=== PATIENT | female | born 1950 ===

== ENCOUNTER 2020-03-01 20:37 | Outpatient (REF) | payer MEDICARE, MEDICAID, SELFPAY | END 2020-03-01 20:57 | LOC: LBN 20:37 | PROVIDERS: Visit Provider Podiatrist | DX: L02.612 Cutaneous abscess of left foot (principal) | CPT/HCPCS: 87070; 87205 ==

== ENCOUNTER 2020-05-03 15:49 | Inpatient (IN) | payer MEDICARE, MEDICAID, SELFPAY ==
[2020-05-03 16:10] LABS: Abs Immature Grans 0.06 10^3/uL (0.0-0.06); Absolute Basophil Count 0.02 10^3/uL (0.0-0.2); Absolute Lymphocyte Count 2.68 10^3/uL (1.2-3.4); Absolute Monocyte Count 0.79 10^3/uL (0.1-0.8); Absolute Neutrophil Count 6.45 10^3/uL (1.2-6.7); Basophils % 0.2; HCT 40.2 % (36.0-46.0); HGB 13.1 g/dL (11.2-15.7); Immature Grans % 0.6; Lymphocytes % 26.3; MCH 28.4 pg (27.0-33.0); MCHC 32.6 % (32.0-36.0); MCV 87.2 fL (80-95); MPV 10.5 fL (8.0-11.0); Monocytes % 7.7; Neutrophils % 63.2; Nucleated RBC 0 %; Platelet Count 231 10^3/uL (130-400); RBC 4.61 10^6/uL (3.93-5.22); RDW 13.2 % (11.7-14.6); RDW-SD 41.5 fL
[2020-05-03] MEDS: cefTRIAXone 2 GM/50 ML BAG IVPB (16:10)
[2020-05-03 16:11] VITALS: BP 155/64; PULSE 64; RESP 16; TEMP 36.6; O2SAT 98
[2020-05-03 16:23] LABS: ALT 15 U/L (14-59); AST 17 U/L (15-37); Albumin 2.7 g/dL (3.4-5.0); Alkaline Phosphatase 148 U/L (46-116); Anion Gap 8.2 mmol/L (3-11); BUN 21 mg/dL (7-18); Bilirubin, Total 0.4 mg/dL (0.2-1.0); C-Reactive Protein 6.91 mg/dL (0.0-0.3); CO2 28.8 mmol/L (21.0-32.0); CREATININE 1.53 mg/dL (0.55-1.02); Calcium 9.4 mg/dL (8.5-10.1); Chloride 100 mmol/L (98-107); Estimated GFR 33.65 (mL/min/1.73m2); Glucose 251 mg/dL (74-106); Potassium 3.4 mmol/L (3.5-5.1); Sodium 137 mmol/L (136-145); Total Protein 7.1 g/dL (6.4-8.2)
--- NOTE | 2020-05-03 16:23 | W.ED.GENAD ---
Discharge Plan Disposition Patient Disposition: [facility] INPATIENT Condition: Serious Discharge Details Clinical Impression: Puncture wound of right foot excluding toes with infection, Cellulitis of right lower leg Admit Date/Time: 05/03/20 16:34 Admit Provider: Mauro Fisher Attending Provider: Mauro Fisher Primary Care Provider: Keysha Fernando ED Provider: Jean-Paul Edwards Discharge Data Discharge Date/Time-TO BE ENTERED AT DEPARTURE: 05/03/20 17:08 Medical Decision Making 69-year-old female on chronic low-dose prednisone and with history of diabetes and diabetic neuropathy, sent by Dr. King with concern for deep space infection of the right lower extremity and associated cellulitis. Dr. Wilburn recommended starting ceftriaxone 2 g and continuing Levaquin 750 mg. He plans to debride foot tomorrow. Patient was initially given ceftriaxone 2 g. Patient was unsure of antibiotics and after obtaining medical records it was determined that she has allergy listed to cefepime -specific reaction of encephalopathy. Patient had received some of the ceftriaxone infusion. Infusion was discontinued. Patient will be given Levaquin 750 mg IV as she has not yet taken prescribed Levaquin. Patient did have x-ray in Dr. King's office today -no need to repeat at this time. Patient does have erythema of her right lower extremity which I suspect is secondary to cellulitis. She has no calf tenderness. I called and spoke with Dr. Fisher, hospitalist , who will admit the patient. Patient does note that tetanus is up-to-date and was up-to-date at time of puncture wound. HPI General Mode of arrival: ambulatory. Date/Time Provider Initiated Documentation: 05/03/20 15:54. Limitations to Documentation: no limitations. Information obtained by: patient. HPI Narrative: 69-year-old female with history of diabetes, on chronic low-dose prednisone, here with infection of her right lower extremity at the prompting of Dr. King who saw the patient today in clinic. Patient stepped on a metal tack and sustained puncture wound to her right foot 3 to 4 weeks ago. She developed abscess and cellulitis of the right foot and was admitted to outside hospital, [facility], and treated with IV Levaquin and Zosyn. Wound culture grew Klebsiella pneumonia sensitive to Levaquin but resistant to ampicillin. Patient was placed on Levaquin orally at discharge to complete 7-day course. Patient notes that symptoms did improve but then have now worsened. She notes over the past 1 day she developed worsening redness of her lower leg. She denies associated fever. Dr. King is sending to the emergency department for admission for IV antibiotics and plan for debridement tomorrow. Related Data Home Medications Medication Instructions Recorded Confirmed aspirin [Aspirin Low Dose] 81 mg PO DAILY 05/03/20 05/03/20 celecoxib 100 mg PO DAILY PRN 05/03/20 05/03/20 duloxetine [Cymbalta] 120 mg PO DAILY 05/03/20 05/03/20 famotidine 20 mg PO DAILY 05/03/20 05/03/20 fluticasone propionate 1 spray INTRANASAL DAILY PRN 05/03/20 05/03/20 glipizide 5 mg PO BID 05/03/20 05/03/20 lisinopril 40 mg PO DAILY 05/03/20 05/04/20 metoprolol tartrate 50 mg PO BID 05/03/20 05/04/20 ondansetron HCl [Zofran] 4 mg PO .Q8HRS PRN 05/03/20 05/03/20 potassium chloride 20 meq PO DAILY 05/03/20 05/03/20 albuterol sulfate 2 puff INHALATION Q4H PRN PRN 05/04/20 05/04/20 clotrimazole 0 applic TOPICAL BID 05/04/20 05/04/20 lidocaine 1 patch TOPICAL Q24H 05/04/20 05/04/20 prednisone 10 mg PO DAILY 05/04/20 05/04/20 simvastatin 40 mg PO HS 05/04/20 05/04/20 solifenacin 10 mg PO DAILY 05/04/20 05/04/20 torsemide 20 mg PO QAM 05/04/20 05/04/20 trospium 20 mg PO BID 05/04/20 05/04/20 valacyclovir 500 mg PO DAILY 05/04/20 05/04/20 Allergies Allergy/AdvReac Type Severity Reaction Status Date / Time cefepime Allergy Severe Unverified 05/03/20 16:26 General Stated Complaint: Cellulitis NUZHAT: 3 Review of Systems All systems reviewed & are unremarkable except as noted in HPI and below Constitutional Constitutional: Denies fever(s) Integumentary/Breasts Skin/Breast: Reports as per [facility] Medical History Diabetes Diabetic neuropathy Venous stasis of both lower extremities Social History Smoking/Tobacco Use Status: Former Tobacco Use Exam Const General: cooperative and no acute distress HENMT Mouth: moist mucous membranes Eyes Conjunctivae: normal conjunctivae Sclera: normal sclerae Neck Neck: trachea midline and supple Resp Auscultation: clear to auscultation bilaterally, no rales, no rhonchi and no wheezes Cardio Jugular venous pressure: no JVD Rate: regular rate and not tachycardic Rhythm: regular rhythm GI Palpation: soft, not firm, no guarding, no masses, not rigid and nontender Skin Rashes: rashes noted (Erythema right lower extremity extending to just distal to knee) Wounds: wounds noted (Puncture wound base of right foot) Neuro General: patient alert, patient awake and tone normal Extrem General: no calf tenderness and edema (Trace bilateral right greater than left) Right lower extremity: lower leg Details: erythema and warmth; no crepitus Psych Appearance: grossly normal Mental Status: mental status grossly normal Course Vital Signs Vital signs: Vital Signs Temperature 36.6 C 05/03/20 16:11 Pulse 64 05/03/20 16:11 Respiratory Rate 16 05/03/20 16:11 Blood Pressure 155/64 H 05/03/20 16:11 Pulse Oximetry 98 05/03/20 16:11 Temperature 36.6 C 05/03/20 16:11 Temperature Source Skin 05/03/20 16:11 Pulse 64 05/03/20 16:11 Respiratory Rate 16 05/03/20 16:11 Respiratory Effort Non-Labored 05/03/20 16:11 Blood Pressure 155/64 H 05/03/20 16:11 Blood Pressure Position Supine 05/03/20 16:11 Pulse Oximetry 98 05/03/20 16:11 Oxygen Delivery Method Room Air 05/03/20 16:11 Oxygen Flow Rate 0 05/03/20 16:11 Pain Level 0 05/03/20 16:11 Lab/Test Results Lab/Test Results: Laboratory Tests Range/Units 05/03/20 16:05 WBC (4.4-10.8) 10^3/uL 10.20 RBC (3.93-5.22) 10^6/uL 4.61 Hgb (11.2-15.7) g/dL 13.1 Hct (36.0-46.0) % 40.2 MCV (80-95) fL 87.2 MCH (27.0-33.0) pg 28.4 MCHC (32.0-36.0) % 32.6 RDW (11.7-14.6) % 13.2 Plt Count (130-400) 10^3/uL 231 MPV (8.0-11.0) fL 10.5 Immature Gran % 0.6 Neutrophils % 63.2 Lymphocytes % 26.3 Monocytes % 7.7 Eosinophils % 2.0 Basophils % 0.2 Nucleated RBC % % 0 Absolute Neutrophils (1.2-6.7) 10^3/uL 6.45 Absolute Lymphocytes (1.2-3.4) 10^3/uL 2.68 Absolute Monocytes (0.1-0.8) 10^3/uL 0.79 Absolute Eosinophils (0.0-0.7) 10^3/uL 0.20 Absolute Basophils (0.0-0.2) 10^3/uL 0.02
[2020-05-03] MEDS: levoFLOXacin 750 MG/150 ML BAG 100 MG IVPB (16:30)
[2020-05-03 16:47] LABS: ESR 104 mm/hr (0-30)
--- NOTE | 2020-05-03 16:53 | W.PM.HP.N ---
Date of service: 05/03/20 Time of Service: 16:53 Assessment and Plan Assessment and plan (1) Puncture wound of right foot excluding toes with infection: Status: Acute Assessment and plan: Dr King planning debridement tomorrow. Given Levquin in the ED. No elevated WBC count or fever. (2) Cellulitis of right lower leg: Status: Acute Assessment and plan: Erythema from the foot and ascending to just below the knee. IV Levaquin. (3) Diabetic neuropathy: Status: Acute Assessment and plan: Diminished sensation in feet. No pain at R foot puncture site. Qualifiers: Diabetes mellitus type: type 2 Diabetes mellitus complication detail: diabetic polyneuropathy Qualified Code(s): E11.42 - Type 2 diabetes mellitus with diabetic polyneuropathy (4) Diabetes: Status: Chronic Assessment and plan: On Glipizide at home. Elevated glucose currently. Will be NPO after MN. FSBS Q6H. SS insulin correction dosing; adjust as necessary. A1c ordered. Qualifiers: Diabetes mellitus type: type 2 Diabetes mellitus termite treater helper insulin use: without assisted use Diabetes mellitus complication status: with neurologic complications (5) Essential hypertension: Status: Acute Assessment and plan: Will cont Metoprolol and Lisinopril History of Present Illness History of Present Illness Chief Complaint: cellulitis of R foot/leg Narrative: This is a 69 yo female with a PMH of diabetes with neuropathy, GERD, HTN. She presented to the ED from Dr. King's office who saw her for a R foot infection following a punture injury with a tack. She stepped on a metal tack 3-4 weeks ago. She developed an abscess and cellulitis of the R plantar foot and admitted at [facility]. She was treated with IV Levaquin and Zosyn. Wound culture grew Klebsiella pneumonia sensitive to levaquin, resistant to ampicillin. She was placed on oral levaquin at discharge but the redness in the R leg worsened and has been progressing proximally. No F/C. No pain. She saw Dr King who sent her to the ED for admission and debridement of the wound tomorrow, 05/04/2020. IV Levaquin administered. Ceftriaxone was also recommended by Dr King but she has an allergy to Cefepime with the reacion listed as severe. The patient states that happened during a previous hospitalization but she doesn't recall the type of reaction. Her WBC count is normal. Creatinine 1.53. Random glucose 251. CRP 6.91 Review of Systems All systems reviewed & are unremarkable except as noted in HPI and below PFSH Medical History Diabetes Diabetic neuropathy Venous stasis of both lower extremities Social History Smoking/Tobacco Use Status: Former Tobacco Use Meds Home Medications and Allergies Home Medications Medication Instructions Recorded Confirmed Type Unknown [No Known Home Meds] 05/03/20 05/03/20 History aspirin [Aspirin Low Dose] 81 mg PO DAILY 05/03/20 05/03/20 History celecoxib 100 mg PO DAILY PRN 05/03/20 05/03/20 History duloxetine [Cymbalta] 120 mg PO DAILY 05/03/20 05/03/20 History famotidine 20 mg PO DAILY 05/03/20 05/03/20 History fluticasone propionate 1 spray INTRANASAL DAILY PRN 05/03/20 05/03/20 History glipizide 5 mg PO BID 05/03/20 05/03/20 History lisinopril 20 mg PO DAILY 05/03/20 05/03/20 History metoprolol tartrate 50 mg PO DAILY 05/03/20 05/03/20 History ondansetron HCl [Zofran] 4 mg PO .Q8HRS PRN 05/03/20 05/03/20 History potassium chloride 20 meq PO DAILY 05/03/20 05/03/20 History Allergies Allergy/AdvReac Type Severity Reaction Status Date / Time cefepime Allergy Severe Unverified 05/03/20 16:26 Exam Const General: cooperative and no acute distress Nutritional Appearance: overweight Orientation: alert and oriented x3 Neck Neck: full ROM and no JVD Resp Effort & Inspection: normal respiratory effort Auscultation: clear to auscultation bilaterally Cardio Rate: regular rate Rhythm: regular rhythm Heart Sounds: S1 normal and S2 normal GI Palpation: soft and nontender Auscultation: normal bowel sounds Skin General skin exam: erythema (R foot ankle and LE to below the knee.) Lesions: lesion noted (plantar aspect of R foot; puncture lesion) Extrem General: edema Laterality: bilateral (LE trace) Psych Appearance: grossly normal Affect: normal affect Attitude: cooperative Thought Process: normal Thought Content: normal Results Labs Result diagrams: 05/03/20 16:05 05/03/20 16:05 Labs: Laboratory Results - last 24 hr 05/03/20 05/03/20 16:05 16:05 WBC 10.20 RBC 4.61 Hgb 13.1 Hct 40.2 MCV 87.2 MCH 28.4 MCHC 32.6 RDW 13.2 Plt Count 231 MPV 10.5 Immature Gran % 0.6 Neutrophils % 63.2 Lymphocytes % 26.3 Monocytes % 7.7 Eosinophils % 2.0 Basophils % 0.2 Nucleated RBC % 0 Absolute Neutrophils 6.45 Absolute Lymphocytes 2.68 Absolute Monocytes 0.79 Absolute Eosinophils 0.20 Absolute Basophils 0.02 ESR 104 H Sodium 137 Potassium 3.4 L Chloride 100 Carbon Dioxide 28.8 Anion Gap 8.2 BUN 21 H Creatinine 1.53 H Estimated GFR/1.73 m2 33.65 Glucose 251 H Calcium 9.4 Total Bilirubin 0.4 AST 17 ALT 15 Alkaline Phosphatase 148 H C-Reactive Protein 6.91 H Total Protein 7.1 Albumin 2.7 L Last Vital Signs Temp 36.6 C 05/03/20 16:11 Pulse 64 05/03/20 16:11 Resp 16 05/03/20 16:11 BP 155/64 H 05/03/20 16:11 Pulse Ox 98 05/03/20 16:11 COVID-19 Screening Have you,or household,traveled outside [place] in last 14 days?: No Had IN PERSON contact w/suspected or confirmed C-19 person: No
[2020-05-03 17:20] VITALS: BP 177/95; PULSE 69; RESP 17; TEMP 36.2; O2SAT 99
[2020-05-03 17:24] VITALS: BP 177/95; PULSE 69; RESP 17; TEMP 36.2; O2SAT 99
[2020-05-03 17:38] LABS: Hemoglobin A1C 8.7 % (<5.7)
[2020-05-03] MEDS: Insulin Aspart 300 UNITS/3 ML PEN SC (17:44)
[2020-05-03] MEDS: Normal Saline 1,000 ML 80 ML IV (17:59)
[2020-05-03] MEDS: Potassium Chloride 20 MEQ TABCR PO (17:59)
[2020-05-03 18:16] VITALS: BP 140/77
[2020-05-03 19:10] VITALS: BP 152/85; PULSE 68; RESP 18; TEMP 35.9; O2SAT 98
[2020-05-03] MEDS: Acetaminophen 325 MG TAB 650 MG PO (21:21)
[2020-05-03] MEDS: Polyethylene Glycol 3350 17 GM PACKET PO (23:21)
[2020-05-04] VITALS (8 sets, daily range): BP systolic 156–187; BP diastolic 76–109; PULSE 63–91; RESP 16–18; TEMP 36.1–37; O2SAT 95–98
--- NOTE | 2020-05-04 | DI.MRI_ITS ---
EXAM: MR LOWER EXTREMITY RT WO/W CLINICAL HISTORY: osteomyelitis right midfoot. TECHNIQUE: Multiplanar multisequence MRI Examination was performed. CONTRAST MATERIAL: IV Contrast: 18 mL of Dotarem contrast administered. COMPARISON: None. FINDINGS: The examination is limited due to patient motion artifact. BONES/JOINTS: No evidence of fracture. No findings to suggest acute osteomyelitis. Degenerative sign al changes are seen at the 2nd through 5th tarsometatarsal joints. No joint effusion identified. LIGAMENTS: Unremarkable as visualized. MUSCULOTENDINOUS STRUCTURES: Visualized portion of the planar fascia is unremarkable. The visualized intrinsic muscles and tendons of the foot are unremarkable. SOFT TISSUES: There is edema seen in the soft tissues on the plantar surface of the foot around the b ase of the 1st metatarsal. No definite focal fluid collection is seen to suggest an abscess. OTHER FINDINGS: No enhancing mass is appreciated. IMPRESSION: 1. No evidence of acute osteomyelitis. 2. Cellulitis in the soft tissues on the plantar surface of the foot. No abscess is appreciated. 3. Degenerative changes seen in the foot particularly at the 2nd through 5th tarsometatarsal joints. 4. Findings were discussed with Dr. King on the date of the examination. DATA REPOSITORY:
--- NOTE | 2020-05-04 | DI.RAD_ITS ---
EXAM: XR ORBITS INDICATION: OSTEOMYELITIS RT MID FOOT, H/O METAL TO EYES, PRE MRI CLEARANCE. COMPARISON: No exams were available for comparison TECHNIQUE: 2D digital imaging was performed. FINDINGS: No radiopaque foreign bodies are identified. IMPRESSION: DATA REPOSITORY: RADIATION DOSE DELIVERED:
[2020-05-04] MEDS: Normal Saline 1,000 ML 80 ML IV ×2 (05:43→23:41)
[2020-05-04 06:43] LABS: Abs Immature Grans 0.07 10^3/uL (0.0-0.06); Absolute Monocyte Count 0.71 10^3/uL (0.1-0.8); HGB 11.6 g/dL (11.2-15.7); MCH 29.1 pg (27.0-33.0); MCHC 33.1 % (32.0-36.0); MCV 87.9 fL (80-95); MPV 10.1 fL (8.0-11.0); Nucleated RBC 0 %; Platelet Count 166 10^3/uL (130-400); RBC 3.98 10^6/uL (3.93-5.22); RDW 13.2 % (11.7-14.6); RDW-SD 42.5 fL; WBC 7.93 10^3/uL (4.4-10.8)
[2020-05-04 06:52] LABS: Anion Gap 7.8 mmol/L (3-11); BUN 17 mg/dL (7-18); CO2 27.2 mmol/L (21.0-32.0); CREATININE 1.03 mg/dL (0.55-1.02); Calcium 9.2 mg/dL (8.5-10.1); Chloride 105 mmol/L (98-107); Estimated GFR 53.13 (mL/min/1.73m2); Glucose 178 mg/dL (74-106); Potassium 3.5 mmol/L (3.5-5.1); Sodium 140 mmol/L (136-145)
[2020-05-04 07:23] LABS: Absolute Lymphocyte Count 1.74 10^3/uL (1.2-3.4); Atypical Lymphocytes % 3; Diff Comment Manual Differential; Metamyelocytes % 1; RBC Morphology Normal
[2020-05-04] MEDS: Gadoterate meglumine 20 ML VIAL 18 ML IVP (08:17)
[2020-05-04 08:29] LABS: COVID-19 RT-PCR UVMMC Result Negative (Negative)
--- NOTE | 2020-05-04 08:41 | POCOE_ITS ---
Date of service: 05/04/20 Time of Service: 08:41 History of Present Illness History of Present Illness Chief Complaint: Puncture wound with abscess right midfoot Narrative: Emma is a 69-year-old poorly controlled diabetic with peripheral neuropathy who stepped on a tack in the medial arch region of the right foot which subsequently became infected. She was initially admitted at [facility] April 10 for IV antibiotics and was discharged several days later on oral Levaquin. Cultures during that admission revealed Klebsiella resistant to ampicillin. She presented to my office yesterday with increasing redness now e xtending to just below the knee and feeling frustrated at this ongoing infection. After examining her in the office she was referred to [facility] through the emergency department for admission. [facility] Medical History Diabetes Diabetic neuropathy Venous stasis of both lower extremities Social History Smoking/Tobacco Use Status: Former Tobacco Use Exam Narrative Exam Narrative: Peripheral pulses are diminished but palpable at the ankle. Right foot is warm to the touch. Wound is appreciated to plantar medial aspect of the right foot with fluctuance. Localized erythema is appreciated in the foot as well as on the anterior ruiz leading up to the tibial tuberosity region, her calf is soft to palpation no findings of DVT. Muscle groups of 5 out of 5 bilaterally. Skeletal exam reveals marked degenerative changes of the right midfoot and forefoot with loss of the longitudinal and transverse arches. Radiographs that were obtained to my office yesterday revealed Charcot-like change of the right midfoot without definitive findings of osteomyelitis Neurologically she has moderate diabetic peripheral neuropathy but toes are downgoing. Impressions puncture wound right foot with ongoing infection Osteomyelitis? Plan: Culture was obtained yesterday showing white blood cells and gram-positive cocci. Actual organism ID and sensitivities to follow Emma is receiving her MRI as I dictate this note. She will be brought to the O R for debridement of the right foot this morning. And it understands that it may require multiple debridements to fully eradicate the infectious process and that there is a potential for loss of tissue. Discussed the case with Dr. Leon. We will increase her current antibiotic coverage from Levaquin to Levaquin and vancomycin. Results Last Vital Signs Temp 36.1 C L 05/04/20 03:50 Pulse 72 05/04/20 03:50 Resp 17 05/04/20 03:50 BP 176/80 H 05/04/20 03:50 Pulse Ox 95 05/04/20 03:50 Labs Result diagrams: 05/04/20 06:28 05/04/20 06:28 Labs: Laboratory Results - last 24 hr 05/03/20 05/03/20 05/03/20 16:05 16:05 16:05 WBC 10.20 RBC 4.61 Hgb 13.1 Hct 40.2 MCV 87.2 MCH 28.4 MCHC 32.6 RDW 13.2 Plt Count 231 MPV 10.5 Immature Gran % 0.6 Neutrophils % 63.2 Lymphocytes % 26.3 Atypical Lymphs % Monocytes % 7.7 Eosinophils % 2.0 Basophils % 0.2 Metamyelocytes % Nucleated RBC % 0 Absolute Neutrophils 6.45 Absolute Lymphocytes 2.68 Absolute Monocytes 0.79 Absolute Eosinophils 0.20 Absolute Basophils 0.02 RBC Morphology ESR 104 H Sodium 137 Potassium 3.4 L Chloride 100 Carbon Dioxide 28.8 Anion Gap 8.2 BUN 21 H Creatinine 1.53 H Estimated GFR/1.73 m2 33.65 Glucose 251 H Hemoglobin A1c 8.7 H Calcium 9.4 Total Bilirubin 0.4 AST 17 ALT 15 Alkaline Phosphatase 148 H C-Reactive Protein 6.91 H Total Protein 7.1 Albumin 2.7 L COVID-19 PCR Nasopharyn COVID-19 PCR Ref Test Perform Site 05/03/20 05/04/20 05/04/20 16:39 06:28 06:28 WBC 7.93 RBC 3.98 Hgb 11.6 Hct 35.0 L MCV 87.9 MCH 29.1 MCHC 33.1 RDW 13.2 Plt Count 166 MPV 10.1 Immature Gran % See Differential Neutrophils % 63.0 Lymphocytes % 19.0 Atypical Lymphs % 3 Monocytes % 9.0 Eosinophils % 5.0 Basophils % 0.0 Metamyelocytes % 1 Nucleated RBC % 0 Absolute Neutrophils 5.00 Absolute Lymphocytes 1.74 Absolute Monocytes 0.71 Absolute Eosinophils 0.40 Absolute Basophils 0.00 RBC Morphology Normal ESR Sodium 140 Potassium 3.5 Chloride 105 Carbon Dioxide 27.2 Anion Gap 7.8 BUN 17 Creatinine 1.03 H D Estimated GFR/1.73 m2 53.13 Glucose 178 H Hemoglobin A1c Calcium 9.2 Total Bilirubin AST ALT Alkaline Phosphatase C-Reactive Protein Total Protein Albumin COVID-19 PCR Negative Nasopharyn COVID-19 PCR Not Applicable Ref Test Perform Site [facility] lab
--- NOTE | 2020-05-04 09:13 | INITIAL_ITS ---
- If Service Date Differs Date of service: 05/04/20 Time of Service: 09:13 Care Management Initial Assess REASON FOR HOSPITALIZATION:: Cellulitis PAST MEDICAL HISTORY/PAST SURGICAL HISTORY:: Medical History. Diabetes. Diabetic neuropathy. Venous stasis of both lower extremities PREVIOUS FUNCTIONAL STATUS/SOCIAL/FAMILY SUPPORTS:: Emma lives in [place], alone. She has four children who are supportive. Two of her sons live in [place], one in [place], and her daughter recently moved back to [place] from [place]. Emma has HH RN and has a residential case manager from [facility] that helps her in the community. She is independent at baseline. CURRENT FUNCTIONAL STATUS:: Emma was sitting up in her chair when CM met with her. She has already been to have an MRI and debridement of her foot this morning. She reported that it went well and she does not have any pain at this time. She asked about the visitation policy, and she identified her son, Nathaniel as her visitor for this admission. She asked to call [facility] to inform them that she is here. CM called and spoke to Monica at [facility] who was pleased to receive the information. Nathaniel brought in her CPAP machine from home, at the request of her RN. brought Emma a word search book to keep her busy while she is here. She was very pleasant. CM will continue to follow. ADVANCE DIRECTIVES:: None on file. Has patient been provided with info about the portal/API?: No Did the patient sign up for the portal?: No CODE STATUS:: Full Code INSURANCE COVERAGE / FINANCIAL ISSUES:: [facility]/ [facility] CURRENT HOME/COMMUNITY SERVICES/EQUIPMENT:: Emma has a FWW at home. She currently has HH RN from [employer] [facility] [employer] [employer]. She has a residential case manager through [facility], Marya Suarez. PRIMARY CARE PHYSICIAN:: Keysha Fernando POTENTIAL DISCHARGE NEEDS:: Evaluations for further needs, follow up suzie ointments. PATIENT/FAMILY EDUCATION NEEDS:: Review discharge instructions regarding activity levels and medications, discussion of self care needs including ask me three. ANTICIPATED BARRIERS TO DISCHARGE:: None identified at this time. TRANSPORTATION:: Via private vehicle by family when ready. PLAN:: Emma will go to the OR today for debridement of her right foot. Anticipate she may need IV abx, awaiting sensitivities currently. Depending on her abx course, she may need to transition to SWB1 vs home with resumption of HH RN, possibly adding PT. CM will continue to follow.
[2020-05-04] MEDS: Lactated Ringers 1,000 ML 100 ML IV (09:35)
[2020-05-04] MEDS: Lidocaine 1% Multi-Dose 50 ML VIAL (09:51)
[2020-05-04] MEDS: Bupivacaine 0.5% Pres-Free 30 ML VIAL (09:51)
--- NOTE | 2020-05-04 10:19 | W.PM.OP ---
Date of service: 05/04/20 Time of Service: 10:20 Operative Note Operative Note DATE OF PROCEDURE: 05/04/20 PRE-OP DIAGNOSIS: Puncture wound with abscess right foot PROCEDURE: Debridement right foot with [place] placement ANESTHESIA: MAC ESTIMATED BLOOD LOSS: 3 PATHOLOGY: none sent COMPLICATIONS: None Patient was transported to: floor Patient's condition: stable Implants: [place] drain Indications: 69-year-old poorly controlled diabetic with a puncture wound approximately 4 weeks in duration with persistent signs of infection to the right foot with extension up the leg. She is being brought to the OR for incision and drainage?debridement type procedure to the right foot. Risk and complications have been discussed. All questions have been answered. Informed consent has been obtained. Findings: MRI was obtained this morning prior to surgery there was no indication of osteomyelitis although she has advanced degenerative arthritis throughout the midfoot. No foreign bodies were noted. Procedure Description: Emma was brought to the operative suite placed in the supine position with a right foot prepped and draped in the usual sterile podiatric fashion. Timeout was performed per. Protocol. anesthesia being accomplished in the monitored anesthesia and the right ankle block utilizing 18 cc of a 50: 50 mixture 1% lidocaine plain, 0.5% Marcaine plain. Attention was directed to the puncture wound at the plantar medial aspect of the right foot. The puncture wound was sharply debrided and an opening easily identified a probe was inserted into this opening which tracked proximal medially exiting dorsal medially over the first metatarsal approximately at its midpoint. The plantar incision was then opened approximately a centimeter with a #15 scalpel. Additional tracking was appreciated distally towards the forefoot region going another 2 cm. No hannah purulence was identified once I got through the initial opening of the wound plantarly. Since I obtained a good culture last night I did not repeat them at this time. Curettes were then inserted from the plantar aspect of the foot and the soft tissue gently curettaged removing any debris. Once again no obvious purulent matter identified nor any significant signs of foreign material. Slight bleeding was encountered as would be expected. A probe was inserted into this wound I followed the sinus tract proximal medially dorsal and came up just above the midportion of the first metatarsal. With a #15 scalpel a stab incision was made and the probe pushed through exiting dorsomedially on the foot. Irrigation was subsequently performed utilizing a 60 cc syringe and a 14-gauge Angiocath. 180 mL's of normal saline was pushed through this mechanism. 1/4 inch Doe drain was then passed through and through and fluff gauze compression dressings applied to the foot. Estimated blood loss was minimal. Emma tolerated the procedure well. Sharp and sponge counts were correct. She will remain in-house for bedrest, IV antibiotics.
[2020-05-04] MEDS: Lisinopril 20 MG TAB 40 MG PO (10:39)
[2020-05-04] MEDS: Metoprolol 50 MG TAB PO ×2 (10:40→19:58)
[2020-05-04] MEDS: DULoxetine 30 MG CAP 120 MG PO (10:40)
[2020-05-04] MEDS: Acetaminophen 325 MG TAB 650 MG PO ×2 (10:50→19:59)
[2020-05-04] MEDS: Insulin Aspart 300 UNITS/3 ML PEN SC ×3 (11:59→21:51)
--- NOTE | 2020-05-04 12:43 | DM INPTCON_ITS ---
Date of service: 05/04/20 Time of Service: 12:00 Diabetes Inpatient Consult DESCRIPTION/ASSESSMENT: 69 y/o female with diabetic neuropathy and abscess/cellulitis R lower limb r/t puncture wound. Currently 188% IBW w/ BMI 38.2 indicating morbid obesity. On CCHO diet reg texture. Observed 1/2 PBJ sandwich on wheat which she stated was her breakfast due to procedure early this am. She reports that she tests her BG in the morning at home and is normally 115-200 depending on what she eats. Labs reveal 251 mg/dl (05/03) and 178 ( 05/04). She was able to identify what CHO's are and knows that she should limit them. She stated she does not know how to count CHO's. Noted: on glipizide at home. On insulin w/ sliding scale as inpatient. Intervention: Reviewed principals of CHO counting and provided take home literature to help. Educated patient on the risks and benefits of CCHO diet compliance. Provided appropriate BG ranges with chart for review. Provided contact info for in depth DM edu referral upon discharge. Recommend: Active lx pro supplement 30 ml BID w/ 30 ml H2O to provide 30g/pro/day to help w/ wound healing. Vit C and Zn per MD approval. Plan: Emma will contact for referral to RD at [facility] for outpatient Diabetes, weight loss nutrition education after discharge to facilitate self -management techniques. Time Spent in Nutritional Counseling and Treatment: 10 minutes
--- NOTE | 2020-05-04 13:58 | PHA.REVIEW ---
Pharmacy Admission Review - Admission Clinical Review (Last Reviewed 05/04/20 @ 08:43 by Jefry King DPM) Essential hypertension (Acute) Puncture wound of right foot excluding toes with infection (Acute) Cellulitis of right lower leg (Acute) Diabetic neuropathy (Acute) cefepime Allergy (Severe, Unverified 05/03/20 16:26) Height 4 ft 11 in Weight 85.899 kg - Renal Dosing Renal Dosing: BUN 17 mg/dL (7-18) 05/04/20 06:28 Creatinine 1.03 mg/dL (0.55-1.02) H D 05/04/20 06:28 Medications needing adjustments: Reviewed (CrCl ~51.6 using adjusted bw) List of meds needing interventions: As long as kidney function doesn't decline lovefloxacin is okay (otherwise may need to change to q48h) - Anticoagulation Anticoagulation: Hgb 11.6 g/dL (11.2-15.7) 05/04/20 06:28 Hct 35.0 % (36.0-46.0) L 05/04/20 06:28 Plt Count 166 10^3/uL (130-400) 05/04/20 06:28 Creatinine 1.03 mg/dL (0.55-1.02) H D 05/04/20 06:28 DVT Prohphylaxis: N/A Therapeutic Anticoagulation: N/A - Relevant Labs ESR 104 mm/hr (0-30) H 05/03/20 16:05 Sodium 140 mmol/L (136-145) 05/04/20 06:28 Potassium 3.5 mmol/L (3.5-5.1) 05/04/20 06:28 Chloride 105 mmol/L (98-107) 05/04/20 06:28 C-Reactive Protein 6.91 mg/dL (0.0-0.3) H 05/03/20 16:05 Electrolytes, C-Reactive P, ESR: Reviewed - DM Control DM Control: Glucose 178 mg/dL (74-106) H 05/04/20 06:28 Hemoglobin A1c 8.7 % (<5.7) H 05/03/20 16:05 Finger Stick Blood Glucose 268 Finger Stick Blood Glucose 268 Insulin Dosing: Reviewed - Heart Failure/AZ EF%, KELI's, B-Blockers, Diuretics: Reviewed (Metoprolol, lisinopril, torsemide @ home) - BP Control BP Control: Blood Pressure 169/76 Blood Pressure 187/109 Blood Pressure 175/109 Blood Pressure 176/80 If elevated: Intervened List meds needing interventions: Metoprolol should be BID per home med list - notified MD - Qtc Review If Elevated: N/A - IV to PO Switch IV Medications: Reviewed - Home Meds Home Med List reviewed: Intervened (Added several home meds missing from initial review upon admission) Relevent Home Meds Not ordered & why?: glipizide - SS insulin ordered, trospium - hasn't filled since 03/13 - Current meds Current Medication Order Review: Intervened (Adjusted SS insulin to meal time coverage from scheduled as she is no longer NPO) - Comments Comments/Follow Ups: Vancomycin plus IV levofloxacin for cellulitis
--- NOTE | 2020-05-04 14:10 | PGE_ITS ---
Date of Service Date of service: 05/04/20 Time of Service: 14:10 Assessment and Plan Assessment and plan (1) Puncture wound of right foot excluding toes with infection: Status: Acute Assessment and plan: Dr King debrided today. continue vanco and Levquin day 2 No elevated WBC count or fever. (2) Cellulitis of right lower leg: Status: Acute Assessment and plan: Erythema from the foot and ascending to just below the knee. IV Levaquin and vancomycin day 2. (3) Diabetic neuropathy: Status: Acute Assessment and plan: Diminished sensation in feet. Qualifiers: Diabetes mellitus complication detail: diabetic polyneuropathy Diabetes mellitus type: type 2 Qualified Code(s): E11.42 - Type 2 diabetes mellitus with diabetic polyneuropathy (4) Diabetes: Status: Chronic Assessment and plan: On Glipizide at home. Elevated glucose currently. FSBS ac/hs. SS insulin correction dosing; adjust as necessary. A1c 8.7. Qualifiers: Diabetes mellitus complication status: with neurologic complications D iabetes mellitus care home insulin use: without care home use Diabetes mellitus type: type 2 (5) Essential hypertension: Status: Acute Assessment and plan: Will cont Metoprolol and Lisinopril discussed with DR Fisher who is in agreement Subjective Subjective Patient reports: no new complaints, feels better and afebrile Exam Const General: cooperative and no acute distress Nutritional Appearance: overweight Orientation: alert and oriented x3 Neck Neck: full ROM and no JVD Resp Effort & Inspection: normal respiratory effort Auscultation: clear to auscultation bilaterally Cardio Rate: regular rate Rhythm: regular rhythm Heart Sounds: S1 normal and S2 normal GI Palpation: soft and nontender Auscultation: normal bowel sounds Skin General skin exam: erythema (R foot ankle and LE to below the knee. light pink and within markings) Lesions: other (surgical dressing clean dry and intact.) Extrem General: edema Laterality: bilateral (LE trace) Psych Appearance: grossly normal Affect: normal affect Attitude: cooperative Thought Process: normal Thought Content: normal Objective Last Vital Signs Temp 36.5 C 05/04/20 11:33 Pulse 63 05/04/20 11:33 Resp 17 05/04/20 11:33 BP 169/76 H 05/04/20 11:33 Pulse Ox 98 05/04/20 11:33 Laboratory Results - last 24 hr 05/03/20 05/03/20 05/03/20 16:05 16:05 16:05 WBC 10.20 RBC 4.61 Hgb 13.1 Hct 40.2 MCV 87.2 MCH 28.4 MCHC 32.6 RDW 13.2 Plt Count 231 MPV 10.5 Immature Gran % 0.6 Neutrophils % 63.2 Lymphocytes % 26.3 Atypical Lymphs % Monocytes % 7.7 Eosinophils % 2.0 Basophils % 0.2 Metamyelocytes % Nucleated RBC % 0 Absolute Neutrophils 6.45 Absolute Lymphocytes 2.68 Absolute Monocytes 0.79 Absolute Eosinophils 0.20 Absolute Basophils 0.02 RBC Morphology ESR 104 H Sodium 137 Potassium 3.4 L Chloride 100 Carbon Dioxide 28.8 Anion Gap 8.2 BUN 21 H Creatinine 1.53 H Estimated GFR/1.73 m2 33.65 Glucose 251 H Hemoglobin A1c 8.7 H Calcium 9.4 Total Bilirubin 0.4 AST 17 ALT 15 Alkaline Phosphatase 148 H C-Reactive Protein 6.91 H Total Protein 7.1 Albumin 2.7 L COVID-19 PCR Nasopharyn COVID-19 PCR Ref Test Perform Site 05/03/20 05/04/20 05/04/20 16:39 06:28 06:28 WBC 7.93 RBC 3.98 Hgb 11.6 Hct 35.0 L MCV 87.9 MCH 29.1 MCHC 33.1 RDW 13.2 Plt Count 166 MPV 10.1 Immature Gran % See Differential Neutrophils % 63.0 Lymphocytes % 19.0 Atypical Lymphs % 3 Monocytes % 9.0 Eosinophils % 5.0 Basophils % 0.0 Metamyelocytes % 1 Nucleated RBC % 0 Absolute Neutrophils 5.00 Absolute Lymphocytes 1.74 Absolute Monocytes 0.71 Absolute Eosinophils 0.40 Absolute Basophils 0.00 RBC Morphology Normal ESR Sodium 140 Potassium 3.5 Chloride 105 Carbon Dioxide 27.2 Anion Gap 7.8 BUN 17 Creatinine 1.03 H D Estimated GFR/1.73 m2 53.13 Glucose 178 H Hemoglobin A1c Calcium 9.2 Total Bilirubin AST ALT Alkaline Phosphatase C-Reactive Protein Total Protein Albumin COVID-19 PCR Negative Nasopharyn COVID-19 PCR Not Applicable Ref Test Perform Site [facility] lab
--- NOTE | 2020-05-04 14:47 | CHAPLAIN ---
Emma was up in her chair working on word puzzles when I visited. She is from [place], but sees Dr. Cohen so she ended up here at [facility]. She said she went from [facility], to an MRI to surgery to debreid her foot this morning and she's learned that she doesn't have a bone infection. Her son may travel from [place] to visit her. Her daughter is caring for her father, so won't be able to visit. Emma said she felt like she was fine by herself, but she is glad her son will be here. Being isolated these days because of COVID-19, she says has cut her off from family, and she considers her family a source of strength and comfort.
[2020-05-04] MEDS: levoFLOXacin 750 MG/150 ML BAG 100 MG IVPB (15:46)
[2020-05-04] MEDS: Polyethylene Glycol 3350 17 GM PACKET PO (15:46)
[2020-05-04] MEDS: Simvastatin 40 MG TAB PO (19:58)
[2020-05-04] MEDS: Docusate Sodium 100 MG CAP PO (19:58)
[2020-05-04] MEDS: VANCOMYCIN 750 MG in Normal Saline 250 ML 166.667 MG IVPB (23:40)
[2020-05-05] VITALS (8 sets, daily range): BP systolic 153–205; BP diastolic 78–122; PULSE 62–71; RESP 16–18; TEMP 36.5–37.1; O2SAT 95–98
[2020-05-05] MEDS: Acetaminophen 325 MG TAB 650 MG PO ×2 (06:33→11:46)
[2020-05-05] MEDS: Metoprolol 50 MG TAB PO ×2 (08:03→19:48)
[2020-05-05] MEDS: Zinc Sulfate 220 MG TAB PO (08:03)
[2020-05-05] MEDS: DULoxetine 30 MG CAP 120 MG PO (08:03)
[2020-05-05] MEDS: valACYclovir 500 MG TAB PO (08:04)
[2020-05-05] MEDS: Potassium Chloride 20 MEQ TABCR PO (08:04)
[2020-05-05] MEDS: Docusate Sodium 100 MG CAP PO ×2 (08:04→19:48)
[2020-05-05] MEDS: predniSONE 10 MG TAB PO (08:04)
[2020-05-05] MEDS: Aspirin E.C. 81 MG TABEC PO (08:04)
[2020-05-05] MEDS: Lisinopril 20 MG TAB 40 MG PO (08:04)
[2020-05-05] MEDS: Ascorbic Acid 500 MG TAB PO (08:04)
[2020-05-05] MEDS: Insulin Aspart 300 UNITS/3 ML PEN SC ×4 (08:04→22:02)
[2020-05-05] MEDS: Torsemide 20 MG TAB PO (08:04)
[2020-05-05] MEDS: amLODIPine 5 MG TAB PO (09:40)
[2020-05-05 10:07] LABS: Abs Immature Grans 0.12 10^3/uL (0.0-0.06); Absolute Basophil Count 0.03 10^3/uL (0.0-0.2); Absolute Eosinophil Count 0.19 10^3/uL (0.0-0.7); Absolute Lymphocyte Count 1.62 10^3/uL (1.2-3.4); Absolute Monocyte Count 0.63 10^3/uL (0.1-0.8); Absolute Neutrophil Count 5.96 10^3/uL (1.2-6.7); Basophils % 0.4; Eosinophils % 2.2; Immature Grans % 1.4; Lymphocytes % 18.9; MCH 28.8 pg (27.0-33.0); MCHC 32.4 % (32.0-36.0); MCV 88.9 fL (80-95); MPV 10.3 fL (8.0-11.0); Monocytes % 7.4; Neutrophils % 69.7; Nucleated RBC 0 %; Platelet Count 166 10^3/uL (130-400); RBC 4.16 10^6/uL (3.93-5.22); RDW 13.3 % (11.7-14.6); RDW-SD 43.5 fL; WBC 8.55 10^3/uL (4.4-10.8)
[2020-05-05 10:19] LABS: Anion Gap 6.8 mmol/L (3-11); BUN 15 mg/dL (7-18); C-Reactive Protein 3.14 mg/dL (0.0-0.3); CO2 28.2 mmol/L (21.0-32.0); CREATININE 0.99 mg/dL (0.55-1.02); Calcium 9.1 mg/dL (8.5-10.1); Chloride 101 mmol/L (98-107); Estimated GFR 55.61 (mL/min/1.73m2); Glucose 299 mg/dL (74-106); Magnesium 1.4 mg/dL (1.8-2.4); Potassium 3.7 mmol/L (3.5-5.1); Sodium 136 mmol/L (136-145)
--- NOTE | 2020-05-05 11:22 | W.PM.PROGNOT ---
Date of Service Date of service: 05/05/20 Time of Service: 11:22 Subjective Subjective Patient reports: no new complaints and feels better Exam Narrative Exam Narrative: Dressings were clean and dry. No bleeding or drainage appreciated. Dressings were removed without difficulty. Peripheral pulses are diminished but palpable at the ankle. Right foot is less warm to the touch than yesterday. Wound is appreciated on the plantar medial aspect of the right foot without fluctuance. Erythema is receding in the foot and absent in the leg at this time. Her calf is soft to palpation without findings of DVT. Doe drain is intact. No purulent drainage observed in or around the wound or Doe. No fluctuance appreciated with deep palpation. She was Muscle groups of 5 out of 5 bilaterally. Skeletal exam reveals marked degenerative changes of the right midfoot and forefoot with loss of the longitudinal and transverse arches. Radiographs that were obtained to my office yesterday revealed Charcot-like change of the right midfoot without definitive findings of osteomyelitis Neurologically she has moderate diabetic peripheral neuropathy but toes are downgoing. Microbiology reveals heavy growth gram-positive cocci. Identification and sensitivities pending. CRP is trending downwards now sitting at 3.14. WBCs normal. Impressions puncture wound right foot with improving signs of infection, cellulitis Plan: The Doe drain and incisional areas were prepped with povidone iodine and the wound was irrigated with a 60 cc syringe and a 14-gauge Angiocath 240 mL's of normal saline. The [place] drain was then removed. The plantar and dorsal wounds were then covered with Xeroform gauze fluff compression dressings. We will continue with vancomycin and Levaquin pending culture report. Will continue to follow. Objective Last Vital Signs Temp 36.7 C 05/05/20 11:16 Pulse 69 05/05/20 11:16 Resp 18 05/05/20 11:16 BP 169/100 H 05/05/20 11:16 Pulse Ox 95 05/05/20 11:16 Laboratory Results - last 24 hr 05/05/20 05/05/20 09:50 09:50 WBC 8.55 RBC 4.16 Hgb 12.0 Hct 37.0 MCV 88.9 MCH 28.8 MCHC 32.4 RDW 13.3 Plt Count 166 MPV 10.3 Immature Gran % 1.4 Neutrophils % 69.7 Lymphocytes % 18.9 Monocytes % 7.4 Eosinophils % 2.2 Basophils % 0.4 Nucleated RBC % 0 Absolute Neutrophils 5.96 Absolute Lymphocytes 1.62 Absolute Monocytes 0.63 Absolute Eosinophils 0.19 Absolute Basophils 0.03 Sodium 136 Potassium 3.7 Chloride 101 Carbon Dioxide 28.2 Anion Gap 6.8 BUN 15 Creatinine 0.99 Estimated GFR/1.73 m2 55.61 Glucose 299 H D Calcium 9.1 Magnesium 1.4 L C-Reactive Protein 3.14 H
[2020-05-05] MEDS: VANCOMYCIN 750 MG in Normal Saline 250 ML 167 MG IVPB (11:46)
[2020-05-05] MEDS: MAGNESIUM SULFATE 4 GM/100 ML BAG IVPB (14:02)
[2020-05-05] MEDS: levoFLOXacin 750 MG/150 ML BAG 100 MG IVPB (16:57)
--- NOTE | 2020-05-05 17:28 | W.PM.PROGNOT ---
Date of Service Date of service: 05/05/20 Time of Service: 17:28 Assessment and Plan Assessment and plan (1) Diabetic foot ulcer: Status: Acute Assessment and plan: And abscess s/p I&D by Dr King 05/04/2020. Awaiting surgical cultures. Continue empiric vanco/levofloxacin. Wound care per podiatry. (2) Puncture wound of right foot excluding toes with infection: Status: Acute Assessment and plan: As above. (3) Cellulitis of right lower leg: Status: Acute Assessment and plan: As above (4) Diabetic neuropathy: Status: Chronic Assessment and plan: Will check B12 level Qualifiers: Diabetes mellitus type: type 2 Diabetes mellitus complication detail: diabetic polyneuropathy Qualified Code(s): E11.42 - Type 2 diabetes mellitus with diabetic polyneuropathy (5) Diabetes: Status: Chronic Assessment and plan: A1c 8.7. BGs today: 185, 324, 311. It does appear that she needs more prandial insulin. Will also start long acting insulin. Qualifiers: Diabetes mellitus type: type 2 Diabetes mellitus senior care insulin use: without ocean transportation intermediary use Diabetes mellitus complication status: with neurologic complications (6) Essential hypertension: Status: Acute Assessment and plan: Add norvasc (SBP this am >200). Continue metoprolol and lisinopril. (7) DVT prophylaxis: Status: Acute Assessment and plan: Heparin SC (8) Discharge planning issues: Status: Acute Assessment and plan: Full code Continues to require hospitalization Subjective Subjective Interval history since last seen: Ms Howell reports feeling better now. Her biggest complaint is her foot bothering her and her lower back pain which has been bothering her since the fall. Denies dizziness, chest pain, shortness of breath, nausea, vomiting. Exam Narrative Exam Narrative: General: Very pleasant middle-aged female who is sitting comfortably in a chair eating dinner HEENT: EOMI, MMM Heart: RRR, no m/r/g Lungs: CTAB Abdomen: soft, nontender, nondistended Extremities: R foot dressed - c/d/i. No edema BLEs Objective Last Vital Signs Temp 37.1 C 05/05/20 15:50 Pulse 69 05/05/20 15:50 Resp 18 05/05/20 15:50 BP 160/99 H 05/05/20 15:50 Pulse Ox 95 05/05/20 15:50 Laboratory Results - last 24 hr 05/05/20 05/05/20 09:50 09:50 WBC 8.55 RBC 4.16 Hgb 12.0 Hct 37.0 MCV 88.9 MCH 28.8 MCHC 32.4 RDW 13.3 Plt Count 166 MPV 10.3 Immature Gran % 1.4 Neutrophils % 69.7 Lymphocytes % 18.9 Monocytes % 7.4 Eosinophils % 2.2 Basophils % 0.4 Nucleated RBC % 0 Absolute Neutrophils 5.96 Absolute Lymphocytes 1.62 Absolute Monocytes 0.63 Absolute Eosinophils 0.19 Absolute Basophils 0.03 Sodium 136 Potassium 3.7 Chloride 101 Carbon Dioxide 28.2 Anion Gap 6.8 BUN 15 Creatinine 0.99 Estimated GFR/1.73 m2 55.61 Glucose 299 H D Calcium 9.1 Magnesium 1.4 L C-Reactive Protein 3.14 H
--- NOTE | 2020-05-05 18:35 | PDOC.CMPRO ---
- If Service Date Differs Date of service: 05/05/20 Time of Service: 18:35 Care Management Progress Note S/O: Emma was sitting up in a chair when CM met with her. She was cooperative and readily engaged in conversation. She stated that she is feeling pretty good. Yesterday Dr. King performed an I&D of her right foot and cultures are pending. She is on empiric antibiotics until culture ID and sensitivities are known. She has also had hypertensive episodes with systolic readings as high as 200. Her provider is adjusting her antihypertensive medications to address this. A: Emma is a 69 year oldwoman admitted on 05/03/20 with cellulitis with abscess of her RLE. P: Emma will likely return home with a resumption of services. She may require longer term IVAB, depending on the organism identified, which may affect the timeline of her discharge. She will follow up with her PCP, Podiatry and discharge plan of care and transport with [facility] coordinated by CM. CM will continue to support patien, family and discharge planning concerns.
[2020-05-05] MEDS: Lidocaine 5% Patch 1 PATCH TP (19:47)
[2020-05-05] MEDS: Simvastatin 40 MG TAB 20 MG PO (19:48)
[2020-05-05] MEDS: Heparin 5,000 UNITS/ML VIAL 5000 UNITS SC (22:01)
[2020-05-05] MEDS: Acetaminophen 500 MG TAB 1000 MG PO (22:02)
[2020-05-05] MEDS: Insulin Glargine 300 UNITS/3 ML PEN SC (22:03)
[2020-05-05] MEDS: VANCOMYCIN 750 MG in Normal Saline 250 ML 166.667 MG IVPB (23:48)
[2020-05-05] MEDS: Normal Saline Flush 10 ML SYR IVP (23:48)
[2020-05-06] MEDS: Acetaminophen 500 MG TAB 1000 MG PO ×3 (06:20→21:13)
[2020-05-06] MEDS: Heparin 5,000 UNITS/ML VIAL 5000 UNITS SC ×3 (06:21→21:14)
[2020-05-06 08:00] LABS: Abs Immature Grans 0.15 10^3/uL (0.0-0.06); Absolute Basophil Count 0.02 10^3/uL (0.0-0.2); Absolute Eosinophil Count 0.14 10^3/uL (0.0-0.7); Absolute Lymphocyte Count 2.71 10^3/uL (1.2-3.4); Absolute Monocyte Count 0.64 10^3/uL (0.1-0.8); Absolute Neutrophil Count 4.49 10^3/uL (1.2-6.7); Basophils % 0.2; Eosinophils % 1.7; HCT 34.6 % (36.0-46.0); HGB 11.3 g/dL (11.2-15.7); Immature Grans % 1.8; Lymphocytes % 33.3; MCH 28.3 pg (27.0-33.0); MCHC 32.7 % (32.0-36.0); MCV 86.7 fL (80-95); MPV 10.4 fL (8.0-11.0); Monocytes % 7.9; Neutrophils % 55.1; Nucleated RBC 0 %; Platelet Count 166 10^3/uL (130-400); RBC 3.99 10^6/uL (3.93-5.22); RDW 13.3 % (11.7-14.6); WBC 8.15 10^3/uL (4.4-10.8)
[2020-05-06 08:05] VITALS: BP 177/82; PULSE 66; RESP 19; TEMP 37.1; O2SAT 96
[2020-05-06] MEDS: Lisinopril 20 MG TAB 40 MG PO (08:11)
[2020-05-06] MEDS: Torsemide 20 MG TAB PO (08:11)
[2020-05-06] MEDS: amLODIPine 5 MG TAB PO (08:12)
[2020-05-06] MEDS: predniSONE 10 MG TAB PO (08:12)
[2020-05-06] MEDS: valACYclovir 500 MG TAB PO (08:12)
[2020-05-06] MEDS: Zinc Sulfate 220 MG TAB PO (08:12)
[2020-05-06] MEDS: Ascorbic Acid 500 MG TAB PO (08:12)
[2020-05-06] MEDS: Potassium Chloride 20 MEQ TABCR PO ×2 (08:12→09:42)
[2020-05-06] MEDS: Metoprolol 50 MG TAB PO ×2 (08:12→19:59)
[2020-05-06] MEDS: DULoxetine 30 MG CAP 120 MG PO (08:12)
[2020-05-06] MEDS: Aspirin E.C. 81 MG TABEC PO (08:12)
[2020-05-06] MEDS: Docusate Sodium 100 MG CAP PO ×2 (08:12→19:59)
[2020-05-06 08:13] LABS: Anion Gap 8.4 mmol/L (3-11); BUN 16 mg/dL (7-18); C-Reactive Protein 3.27 mg/dL (0.0-0.3); CO2 26.6 mmol/L (21.0-32.0); CREATININE 0.98 mg/dL (0.55-1.02); Calcium 9.2 mg/dL (8.5-10.1); Chloride 102 mmol/L (98-107); Estimated GFR 56.27 (mL/min/1.73m2); Glucose 183 mg/dL (74-106); Magnesium 2.1 mg/dL (1.8-2.4); Potassium 3.3 mmol/L (3.5-5.1); Sodium 137 mmol/L (136-145)
[2020-05-06] MEDS: Insulin Aspart 300 UNITS/3 ML PEN SC ×7 (08:13→21:13)
[2020-05-06 08:59] LABS: Vitamin B12 405 pg/mL (193-986)
--- NOTE | 2020-05-06 10:45 | PDOC.CMPRO ---
- If Service Date Differs Date of service: 05/06/20 Time of Service: 10:45 Care Management Progress Note S/O: Emma was sitting up in a chair when CM met with her. She was cooperative and readily engaged in conversation. Emma shared that Dr. King had been in to see her and verbalized that he was pleased with the appearance of her right foot wound. The IV vancomycin is being discontinued and she will be started on Bactrim. She will likely be discharged tomorrow with a 10 day course of Bactrim and follow up with Dr. King. Emma appeared pleased with the plan. A: Emma is a 69 year old woman admitted on 05/03/20 with cellulitis with abscess of her RLE. P: Emma will likely return home with a resumption of services. She will require a 10 day course of oral Bactrim DS and follow up with Dr. King on 05/14/20. She will also follow up with her PCP and discharge plan of care. She will transport with [facility] coordinated by SHOSHANA. CM will continue to support patient, family and discharge planning concerns.
--- NOTE | 2020-05-06 10:45 | W.PM.PROGNOT ---
Date of Service Date of service: 05/06/20 Time of Service: 10:45 Assessment and Plan Assessment and plan (1) Diabetic foot ulcer: Status: Acute Assessment and plan: And abscess s/p I&D by Dr King 05/04/2020. CRP improving, white blood cell count normal. Wound cultures growing MRSA. Levaquin discontinued. Continue Vanco. Wound care per podiatry. (2) Puncture wound of right foot excluding toes with infection: Status: Acute Assessment and plan: As above. (3) Cellulitis of right lower leg: Status: Acute Assessment and plan: As above (4) Diabetic neuropathy: Status: Chronic Assessment and plan: B12 normal, 405. Qualifiers: Diabetes mellitus type: type 2 Diabetes mellitus complication detail: diabetic polyneuropathy Qualified Code(s): E11.42 - Type 2 diabetes mellitus with diabetic polyneuropathy (5) Diabetes: Status: Chronic Assessment and plan: A1c 8.7. Blood glucose improved this morning to 177. Continue long-acting insulin with scheduled mealtime insulin as well as sliding scale coverage. Continue to monitor blood glucose, adjust regimen as needed. Qualifiers: Diabetes mellitus type: type 2 Diabetes mellitus ad terminal makeup operator insulin use: without [facility] use Diabetes mellitus complication status: with neurologic complications (6) Essential hypertension: Status: Acute Assessment and plan: Blood pressure improved today with the addition of amlodipine yesterday. Continue to monitor blood pressure. Titrate amlodipine as indicated. (7) Falls: Status: Acute Assessment and plan: Consult physical therapy. (8) Hypokalemia: Status: Acute Assessment and plan: Replete and monitor. (9) DVT prophylaxis: Status: Acute Assessment and plan: Heparin SC (10) Discharge planning issues: Status: Acute Assessment and plan: Full code. This case was discussed with Dr. Camejo who is in agreement. Subjective Subjective Interval history since last seen: Emma reports that she is feeling better. She denies foot pain, she has peripheral neuropathy. She endorses lower back pain since she fell 2 weeks ago. She has been getting up to the bathroom with a walker and assistance. She is unsteady at times. She is eating and drinking and tolerating her diet, no nausea, vomiting or diarrhea. She moved her bowels yesterday. She denies SOB, coughing, wheezing, CP/pressure palpitations. She reports improvement in her lower extremity edema. She denies any urinary symptoms. Exam Narrative Exam Narrative: General: 69-year-old female, appears stated age, sitting in recliner with lower extremities elevated. Alert and oriented, pleasant and cooperative, answers questions appropriately. Son, Ntahaniel present. HEENT: Normocephalic, atraumatic, pupils equal round, mucous membranes moist. Cardiovascular: Heart has regular rate and rhythm, 2/6 murmur noted at right sternal border. Respiratory: Respirations appear even and unlabored, lung sounds clear bilaterally. GI: + Bowel sounds in 4 quadrants, abdomen is soft, nondistended, nontender on palpation. Extremities: Right foot with dressing clean, dry and intact. Wrinkled skin, trace edema to right lower extremity. Objective Last Vital Signs Temp 37.1 C 05/06/20 08:05 Pulse 66 05/06/20 08:05 Resp 19 05/06/20 08:05 BP 177/82 H 05/06/20 08:05 Pulse Ox 96 05/06/20 08:05 Laboratory Results - last 24 hr 05/06/20 05/06/20 05/06/20 07:24 07:24 07:24 WBC 8.15 RBC 3.99 Hgb 11.3 Hct 34.6 L MCV 86.7 MCH 28.3 MCHC 32.7 RDW 13.3 Plt Count 166 MPV 10.4 Immature Gran % 1.8 Neutrophils % 55.1 Lymphocytes % 33.3 Monocytes % 7.9 Eosinophils % 1.7 Basophils % 0.2 Nucleated RBC % 0 Absolute Neutrophils 4.49 Absolute Lymphocytes 2.71 Absolute Monocytes 0.64 Absolute Eosinophils 0.14 Absolute Basophils 0.02 Sodium 137 Potassium 3.3 L Chloride 102 Carbon Dioxide 26.6 Anion Gap 8.4 BUN 16 Creatinine 0.98 Estimated GFR/1.73 m2 56.27 Glucose 183 H D Calcium 9.2 Magnesium 2.1 C-Reactive Protein 3.27 H Vitamin B12 405
--- NOTE | 2020-05-06 11:02 | PHA.REVIEW ---
Pharmacy Admission Review - Admission Clinical Review (Last Reviewed 05/04/20 @ 08:43 by Jefry King DPM) Diabetic foot ulcer (Acute) Discharge planning issues (Acute) DVT prophylaxis (Acute) Essential hypertension (Acute) Puncture wound of right foot excluding toes with infection (Acute) Cellulitis of right lower leg (Acute) cefepime Allergy (Severe, Unverified 05/03/20 16:26) Height 4 ft 11 in Weight 85.899 kg - Renal Dosing Renal Dosing: BUN 16 mg/dL (7-18) 05/06/20 07:24 Creatinine 0.98 mg/dL (0.55-1.02) 05/06/20 07:24 Medications needing adjustments: Reviewed (crcl ~39ml/min) - Anticoagulation Anticoagulation: Hgb 11.3 g/dL (11.2-15.7) 05/06/20 07:24 Hct 34.6 % (36.0-46.0) L 05/06/20 07:24 Plt Count 166 10^3/uL (130-400) 05/06/20 07:24 Creatinine 0.98 mg/dL (0.55-1.02) 05/06/20 07:24 DVT Prohphylaxis: Reviewed Medications: Heparin Therapeutic Anticoagulation: N/A - Relevant Labs ESR 104 mm/hr (0-30) H 05/03/20 16:05 Sodium 137 mmol/L (136-145) 05/06/20 07:24 Potassium 3.3 mmol/L (3.5-5.1) L 05/06/20 07:24 Chloride 102 mmol/L (98-107) 05/06/20 07:24 Magnesium 2.1 mg/dL (1.8-2.4) 05/06/20 07:24 C-Reactive Protein 3.27 mg/dL (0.0-0.3) H 05/06/20 07:24 Electrolytes, C-Reactive P, ESR: Reviewed (KCL now dose and daily dose increased) - DM Control DM Control: Glucose 183 mg/dL (74-106) H D 05/06/20 07:24 Hemoglobin A1c 8.7 % (<5.7) H 05/03/20 16:05 Finger Stick Blood Glucose 177 Finger Stick Blood Glucose 177 Finger Stick Blood Glucose 177 Insulin Dosing: Reviewed (insulin aspart and glargine) - BP Control BP Control: Blood Pressure 177/82 If elevated: Reviewed - Qtc Review If Elevated: N/A - IV to PO Switch IV Medications: Reviewed (IV abx, other meds PO) - Home Meds Home Med List reviewed: Intervened (glipizide, trospium not ordered simvastatin dose decreased to 20mg due to addition of amlodipine) - Current meds Current Medication Order Review: Reviewed Antibiotic Activity - Pharmacy Antibiotic Review Pharmacy Antibiotic Activity: C/S review (org resistant to cipro sens to vanco. pt continues on vanco and levofloxacin stopped. vanco trough to be evaluated today)
[2020-05-06 11:54] LABS: Vancomycin, Trough 17.1 ug/mL (10.0-20.0)
[2020-05-06] MEDS: VANCOMYCIN 750 MG in Normal Saline 250 ML 167 MG IVPB (12:22)
--- NOTE | 2020-05-06 12:33 | PGE_ITS ---
Date of Service Date of service: 05/06/20 Time of Service: 12:34 Subjective Subjective Patient reports: no new complaints and feels better Exam Narrative Exam Narrative: Dressings were intact, clean and dry. No bleeding or drainage appreciated. Dressings were removed without difficulty. Peripheral pulses are diminished but palpable at the ankle. Right foot is no longer warm to the touch. Wounds on the plantar medial and medial dorsal aspect of the right foot appear to be clean without drainage. Deep palpation within the foot fails to express any discharge. Her calf is soft to palpation without findings of DVT. Muscle groups of 5 out of 5 bilaterally. Skeletal exam reveals marked degenerative changes of the right midfoot and forefoot with loss of the longitudinal and transverse arches. The pressure color is beautiful Neurologically she has moderate diabetic peripheral neuropathy but toes are downgoing. Microbiology reveals heavy growth gram-positive cocci. MRSA POSITIVE Impressions puncture wound right foot with resolving signs of infection, Staph aureus MRSA positive Plan: The levofloxacin has been discontinued by the hospitalist. She remains on vancomycin this morning. We will transition her off of the IV vancomycin to p.o. Bactrim DS in preparation of discharge tomorrow to home. Anticipate a 10- day course of oral antibiotics. Home health will be triggered for local wound care consisting washing the foot with soap and water rinsing with normal saline and patting dry. Iodosorb gel to be applied to both wounds covered with gauze, Kerlix, flex net and Garland wrap daily. She can ambulate as tolerated in a surgical shoe. I would like to see her back in the office a week from Thursday but she knows to contact me after she has been discharged if she has any signs of infection. Objective Last Vital Signs Temp 37.1 C 05/06/20 08:05 Pulse 66 05/06/20 08:05 Resp 19 05/06/20 08:05 BP 177/82 H 05/06/20 08:05 Pulse Ox 96 05/06/20 08:05 Laboratory Results - last 24 hr 05/06/20 05/06/20 05/06/20 07:24 07:24 07:24 WBC 8.15 RBC 3.99 Hgb 11.3 Hct 34.6 L MCV 86.7 MCH 28.3 MCHC 32.7 RDW 13.3 Plt Count 166 MPV 10.4 Immature Gran % 1.8 Neutrophils % 55.1 Lymphocytes % 33.3 Monocytes % 7.9 Eosinophils % 1.7 Basophils % 0.2 Nucleated RBC % 0 Absolute Neutrophils 4.49 Absolute Lymphocytes 2.71 Absolute Monocytes 0.64 Absolute Eosinophils 0.14 Absolute Basophils 0.02 Sodium 137 Potassium 3.3 L Chloride 102 Carbon Dioxide 26.6 Anion Gap 8.4 BUN 16 Creatinine 0.98 Estimated GFR/1.73 m2 56.27 Glucose 183 H D Calcium 9.2 Magnesium 2.1 C-Reactive Protein 3.27 H Vitamin B12 405 Vancomycin Trough 05/06/20 11:30 WBC RBC Hgb Hct MCV MCH MCHC RDW Plt Count MPV Immature Gran % Neutrophils % Lymphocytes % Monocytes % Eosinophils % Basophils % Nucleated RBC % Absolute Neutrophils Absolute Lymphocytes Absolute Monocytes Absolute Eosinophils Absolute Basophils Sodium Potassium Chloride Carbon Dioxide Anion Gap BUN Creatinine Estimated GFR/1.73 m2 Glucose Calcium Magnesium C-Reactive Protein Vitamin B12 Vancomycin Trough 17.1
[2020-05-06 15:05] VITALS: BP 157/87; PULSE 65; RESP 20; TEMP 36.5; O2SAT 95
[2020-05-06 19:00] VITALS: BP 153/82; PULSE 63; RESP 18; TEMP 36.6; O2SAT 96
[2020-05-06] MEDS: Lidocaine 5% Patch 1 PATCH TP (19:59)
[2020-05-06] MEDS: Simvastatin 40 MG TAB 20 MG PO (20:00)
[2020-05-06] MEDS: Insulin Glargine 300 UNITS/3 ML PEN SC (21:13)
[2020-05-06] MEDS: Sulfameth/Trimeth DS TAB 1 TAB PO (21:14)
[2020-05-07 03:37] VITALS: BP 152/84; PULSE 65; RESP 18; TEMP 36.7; O2SAT 95
[2020-05-07] MEDS: Acetaminophen 500 MG TAB 1000 MG PO (06:28)
[2020-05-07] MEDS: Heparin 5,000 UNITS/ML VIAL 5000 UNITS SC (06:28)
[2020-05-07 07:54] VITALS: BP 174/85; PULSE 58; RESP 16; TEMP 36.5; O2SAT 96
[2020-05-07 08:17] LABS: Anion Gap 6.4 mmol/L (3-11); BUN 21 mg/dL (7-18); C-Reactive Protein 2.22 mg/dL (0.0-0.3); CO2 27.6 mmol/L (21.0-32.0); CREATININE 0.97 mg/dL (0.55-1.02); Calcium 9.7 mg/dL (8.5-10.1); Chloride 101 mmol/L (98-107); Estimated GFR 56.94 (mL/min/1.73m2); Glucose 173 mg/dL (74-106); Magnesium 1.8 mg/dL (1.8-2.4); Potassium 3.6 mmol/L (3.5-5.1); Sodium 135 mmol/L (136-145)
--- NOTE | 2020-05-07 08:41 | PDOC.CMDIS ---
LACE Index Scoring Tool - Questions: Length of Stay (in days): 4 - 6 Acuity (Admit via E.D.?): Yes Comorbidities: Diabetes w/o Complication E.D. Visits: 1 - Answers: Total Score: 9 Risk of Readmission: Low Risk Care Management Discharge Reason for Hospitalization: Cellulitis Discharge Plan: Emma will likely return home with a resumption of services. She will require a 10 day course of oral Bactrim DS and follow up with Dr. King on. 05/14/20. She will also follow up with her PCP and discharge plan of care. She will transport with [facility] coordinated by CM. CM will continue to support patient, family and discharge planning concerns. Patient/Family Education Needs: Review discharge instructions, discuss Ask Me Three. Services Needed at Discharge: Home Health Care Services (Resumption of RN, wound care, consideration for PT), Transportation ([facility])
[2020-05-07] MEDS: DULoxetine 30 MG CAP 120 MG PO (08:49)
[2020-05-07] MEDS: Cyanocobalamin 500 MCG TAB 1000 MCG PO (08:49)
[2020-05-07 08:50] VITALS: O2SAT 96
[2020-05-07] MEDS: Docusate Sodium 100 MG CAP PO (08:50)
[2020-05-07] MEDS: valACYclovir 500 MG TAB PO (08:50)
[2020-05-07] MEDS: amLODIPine 5 MG TAB PO (08:52)
[2020-05-07] MEDS: Lisinopril 20 MG TAB 40 MG PO (08:52)
[2020-05-07] MEDS: Ascorbic Acid 500 MG TAB PO (08:52)
[2020-05-07] MEDS: Aspirin E.C. 81 MG TABEC PO (08:53)
[2020-05-07] MEDS: Zinc Sulfate 220 MG TAB PO (08:53)
[2020-05-07] MEDS: Torsemide 20 MG TAB PO (08:53)
[2020-05-07] MEDS: Metoprolol 50 MG TAB PO (08:53)
[2020-05-07] MEDS: predniSONE 10 MG TAB PO (08:53)
[2020-05-07] MEDS: Potassium Chloride 20 MEQ TABCR 40 MEQ PO (08:53)
[2020-05-07] MEDS: Insulin Aspart 300 UNITS/3 ML PEN SC ×4 (08:54→12:13)
--- NOTE | 2020-05-07 08:58 | PT.INIE ---
Date of service: 05/07/20 Time of Service: 08:58 PT Notes Visit Reasons: Cellulitis Physical Therapy Inpatient Initial Evaluation Date: 05/07/2020 Referring Doctor: Eden Roy NP PT Orders: PT CONSULT: falls, peripheral neuropathy, DM foot ulceration Precautions: Fall. Standard. Post-op shoe on R, regular shoe on L. WBAT on R LE. Patient Profile/Admitting Diagnosis: Emma 69-year-old female who presented to the ED on 920 questionable infection and associated cellulitis of the right foot due to accidental stepping on a metal tack. She is diagnosed with puncture wound of the right foot with infection, cellulitis of the right leg and is status post debridement of the right foot with [place] placement on 02/02/2020, and neuropathy. PMHX: Medical History Diabetes Diabetic neuropathy Venous stasis of both lower extremities Social History/Home Situation: Lives alone with her 2 puppies in a private home with 4 steps to enter and rails on both sides. She states that her son is planning on building her around to make getting in and out of the house easier. She is independent with all mobility ADL performance using a 4 wheeled walker for indoors and outdoors. She states that she does not walk too far and that she uses a motorized cart at the grocery store. [facility] takes her to all her doctors appointments. Equipment Owned/DME: Front wheeled walker, 4 wheeled walker Subjective: Agreeable to PT consult. Reports decreased sensation on both lower extremities. Denies dizziness, headache, and lightheadedness. Pain in the right foot with weight bearing. Objective: General Observation: IV access in right UE. Wound dressing on right foot. Erythema to bilateral legs. Mental Status: Alert and oriented x4 Pain: 1/10 in the right foot with weightbearing ROM: Right Upper Extremity: Shoulder Flexion WFL. Shoulder abduction WFL. Elbow flexion WFL. Wrist flexion WFL. Opening and closing of hand WFL. Left Upper Extremity: Shoulder Flexion WFL. Shoulder abduction WFL. Elbow flexion WFL. Wrist flexion WFL. Opening and closing of hand WFL. Right Lower Extremity: Hip flexion WFL. Hip abduction WFL. Knee flexion WFL. Ankle dorsiflexion WFL. Ankle plantarflexion WFL. Left Lower Extremity: Hip flexion WFL. Hip abduction WFL. Knee flexion WFL. Ankle dorsiflexion WFL. Ankle plantarflexion WFL. Strength: Right Upper Extremity: Shoulder flexors 4/5. Shoulder abductors 4/5. Elbow flexors 4/5. Elbow extensors 4/5. Manager Business Operations strong. Left Upper Extremity: Shoulder flexors 4/5. Shoulder abductors 4/5. Elbow flexors 4/5. Elbow extensors 4/5. Manager Business Operations strong. Right Lower Extremity: Hip flexors 4-/5. Hip abductors 4/5. Knee flexors 4-/5. Knee extensors 4-/5. Ankle dorsiflexors NT. Ankle plantarflexors 4/5. Left Lower Extremity:Hip flexors 4/5. Hip abductors 4/5. Knee flexors 4/5. Knee extensors 4/5. Ankle dorsiflexors 5/5. Ankle plantarflexors 5/5. Sensation: Reports numbness and tingling sensation to bilateral legs and feet. Bed Mobility/Transfers: Sit to stand standby assist Stand to sit standby assist Bed to chair standby assist Chair to bed standby assist Gait: Walker with WBAT on the right LE requiring only contact-guard assist with step through gait pattern and complaint of 1/10 pain in the right foot. Decreased jed. Balance: Static Sitting: Normal Dynamic Sitting: Normal fair Static Standing: Dynamic Standing: Fair Special Tests: Mobility Limitations Standardized Measure [facility] AM-PAC 6 clicks Basic Mobility Inpatient Short Form: Raw Score: 18 CMS Score: 47% deficit 4-stage Balance test: Able to maintain feet together and semi-tandem for 10 seconds but was anxious about performing full tandem and one-legged stance indicating moderate to high risk for falls without the use of an assistive device. Informed Consent/Education: Patient instructed in purpose of PT consult and plan of care. Assessment: Emma demonstrates functional mobility decline requiring the use of front wheeled walker and assistance of a caregiver for all mobility ADL performance, generalized weakness, difficulty with walking, impairment with balance, and increased risk for falls due to admitting diagnoses and postoperative status. Emma 69-year-old female who presented to the ED on 920 questionable infection and associated cellulitis of the right foot due to accidental stepping on a metal tack. She is diagnosed with puncture wound of the right foot with infection, cellulitis of the right leg and is status post debridement of the right foot with [place] placement on 02/02/2020, and neuropathy. Patient presents with clinical signs and symptoms consistent with current/admitting diagnoses that have resulted to mobility limitations, gait instability, generalized weakness, and impairment of motor control as demonstrated by the following impairment level findings: 1. Decreased strength to R LE major muscle groups 2. Impaired standing balance 3. Impaired activity tolerance Impairments are contributing to the following functional limitations: 1. Dependent bed mobility skills 2. Increased dependence with transfers 3. Inability to safely ambulate without assistive device and physical assistance 4. Increase completion time for mobility ADL performance 5. Increased fall risk 6. Inability to negotiate steps alone safely Patient is assessed as a [id number] moderate complexity based on the following: History: 69-year-old female with impairment level findings, functional limitations, and past medical history as indicated above Examination: Demonstrable impairment in strength, balance, and mobility level with underlying impairments and functional limitations as documented above Presentation:Evolving Decision Makin moderate complexity Goals: Goals X1 week 1. Supine-Sit independent 2. Sit-Supine independent 3. Sit-Stand independent 4. Stand-Sit independent 5. Bed-Chair independent 6. Chair-Bed independent 7. Independent gait on level surface with use of least restrictive device for at least 300 feet without report of pain nor dyspnea 8. Independent stair negotiation while holding onto bilateral rails for at least 5 steps without report of pain nor dyspnea 9. Independent with home exercise program 10. Good static and dynamic standing balance/tolerance Plan of Care/Treatment Plan: 1-2x/day, 7 days/week x 1 week. Plan of care has been reviewed with the [employer]ANCH MANAGER providing the service under Physical Therapy direction. Initiate Physical Therapy intervention for strengthening, bed mobility, transfers, gait, stairs, balance training, use of assistive device. DISCHARGE RECOMMENDATIONS: Patient will benefit from home health PT services in order to progress mobility level using least restrictive assistive ambulatory device, assess home safety, identify additional equipment needs, and establish a functional maintenance program that will increase ability of patient to remain at home. TREATMENT CODE/TIME: 04177 x 32 minutes beginning at 8:58 AM. Thank you for the opportunity to participate in the care of this patient. Cora Cardoso PT, DPT, CLT [facility] [place], [place]
--- NOTE | 2020-05-07 10:40 | W.PM.DS.N ---
Date of service: 05/07/20 Time of Service: 10:40 DS: Diagnosis Discharge Diagnosis (1) Diabetic foot ulcer: Start date: 05/07/20 Start time: 10:40 Status: Acute Asessment and Plan: From tac. tack in the medial arch region of the right foot which subsequently became infected. She was initially admitted at [facility] April 10 for IV antibiotics and was discharged several days later on oral Levaquin. Cultures during that admission revealed Klebsiella resistant to ampicillin. She had debridement with Dr. King, wound culture grew MRSA sensitive to bactrim, she is being discharged home with 10 days of bactrim BID for infection. Follow up with Dr. King on May.14 (2) Puncture wound of right foot excluding toes with infection: Start date: 05/07/20 Start time: 10:46 Status: Acute Asessment and Plan: as above She will require wound care and therefore will have nursing services (3) Cellulitis of right lower leg: Start date: 05/07/20 Start time: 10:46 Status: Acute Asessment and Plan: as above (4) Diabetic neuropathy: Start date: 05/07/20 Start time: 10:47 Status: Chronic Asessment and Plan: Continue to check feet daily, wear surgical shoe (5) Diabetes: Start date: 05/07/20 Start time: 10:47 Status: Chronic Asessment and Plan: Continue fingersticks and medication per home dosing. (6) Essential hypertension: Start date: 05/07/20 Start time: 10:48 Status: Acute Asessment and Plan: continue home medications, she did require additional medication for hypertension. Amlodipine was initiated, will defer to PCP for further management of BP. (7) Falls: Start date: 05/07/20 Start time: 10:49 Status: Resolved Asessment and Plan: Independent ambulation around room. (8) Hypokalemia: Start date: 05/07/20 Start time: 10:50 Status: Resolved Asessment and Plan: Resolved with po supplementation above case discussed with Dr. Camejo who is in agreement. Discharge Plan Disposition Patient Disposition: HOME W/HOME HEALTH SERVICE Condition: Improving Discharge Details Reason For Visit: CELLULITIS Admit Date/Time: 05/03/20 16:34 Admit Provider: Mauro Fisher Attending Provider: Mauro Fisher Primary Care Provider: Keysha Fernando Hospital Course Hospital Course: 69 y.o female with PMH that was admitted to [facility] through the ED from Dr. Frye office. She had found a tack in her foot which subsequently lead to infection with cellulitis of RLE. Prior to admission she had been discharged from [facility] after receiving IV antibiotics and oral levaquin. Following discharge she was seen by Dr. King and admitted for further management. During hospital stay CRP was 6.9 she was started on vanco and levaquin, the wound was debrided by Dr. King on 05/04. Today CRP is 2.22, wound culture grew MRSA sensitive to bactrim. She is ambulatory around room with surgical boot in place, she feels good and is ready for discharge home with home health services. She will be discharged on Bactrim high dose BID x 10 days. Recommend follow up with PCP in 1-2 weeks. Follow up with Dr. King on May 14. She denies CP, SOB, N/V/D. Wound orders:Home health will be triggered for local wound care consisting washing the foot with soap and water rinsing with normal saline and patting dry. Iodosorb gel to be applied to both wounds covered with gauze, Kerlix, flex net and Garland wrap daily. She can ambulate as tolerated in a surgical shoe. Home Meds and New Rx's Prescriptions: New Iodosorb 0.9 % Gel 10 g topical DIRECTED Qty: 40 RF: 0 amlodipine 5 mg Tablet 5 mg PO DAILY Qty: 30 RF: 0 sulfamethoxazole-trimethoprim 800-160 mg Tablet 2 tab PO BID Qty: 18 RF: 0 Continued lisinopril 20 mg Tablet 40 mg PO DAILY RF: 0 ondansetron HCl [Zofran] 4 mg Tablet 4 mg PO .Q8HRS PRNRF: 0 potassium chloride 10 mEq Tablet Extended Release 20 meq PO DAILY RF: 0 aspirin [Aspirin Low Dose] 81 mg Tablet,Delayed Release (Dr/Ec) 81 mg PO DAILY RF: 0 famotidine 20 mg Tablet 20 mg PO DAILY RF: 0 metoprolol tartrate 50 mg Tablet 50 mg PO BID RF: 0 celecoxib 100 mg Capsule 100 mg PO DAILY PRNRF: 0 fluticasone propionate 50 mcg/actuation [place],Suspension 1 spray INTRANASAL DAILY PRNRF: 0 glipizide 5 mg Tablet 5 mg PO BID RF: 0 duloxetine [Cymbalta] 60 mg Capsule,Delayed Release(Dr/Ec) 120 mg PO DAILY RF: 0 prednisone 10 mg tablet 10 mg PO DAILY RF: 0 valacyclovir 500 mg tablet 500 mg PO DAILY RF: 0 torsemide 10 mg tablet 20 mg PO QAM RF: 0 albuterol sulfate 90 mcg/actuation HFA aerosol inhaler 2 puff INHALATION Q4H PRN PRNRF: 0 simvastatin 40 mg tablet 40 mg PO HS RF: 0 solifenacin 10 mg tablet 10 mg PO DAILY RF: 0 lidocaine 5 % adhesive patch,medicated 1 patch topical Q24H RF: 0 clotrimazole 1 % cream 0 applic TOPICAL BID RF: 0 trospium 20 mg tablet 20 mg PO BID RF: 0 Discharge Instructions Instructions: MRSA (Methicillin-Resistant Staphylococcus Aureus) (DC), Puncture Wound (DC), Diabetic Foot Ulcers (DC) Additional Instructions: Eat yogurt daily Follow up with Dr. King 05/14/2020 at 10 am Follow up with PCP 1-2 weeks regarding blood pressure. Stand Alone Forms: Nursing Discharge Form Referrals: Jefry King DPM [[facility] STAFF PHYSICIAN] - 05/14/20 10:00 am Activity:: Activity as Tolerated Equipment/Supplies:: post op shoe Diet:: Carb Counting Discharge Orders Discharge Orders: Discharge Order (Routine); Ordered 05/07/20 Ordered By: Kerrie Pearce DS: Summary Status at Discharge Functional status at discharge: independent ambulation Overall status at discharge: patient is progressing back to baseline Mental Status: mental status grossly normal Speech and Movement: speech and movement normal Mood: congruent mood Affect: normal affect Exam Narrative Exam Narrative: General: 69-year-old female, appears stated age, sitting in recliner with lower extremities elevated. Alert and oriented, pleasant and cooperative, answers questions appropriately. HEENT: Normocephalic, atraumatic, pupils equal round, mucous membranes moist. Cardiovascular: Heart has regular rate and rhythm, 2/6 murmur noted at right sternal border. Respiratory: Respirations appear even and unlabored, lung sounds clear bilaterally. GI: + Bowel sounds in 4 quadrants, abdomen is soft, nondistended, nontender on palpation. Extremities: Right foot with dressing clean, dry and intact. Wrinkled skin, trace edema to right lower extremity. Psych Mental Status: mental status grossly normal Speech and Movement: speech and movement normal Mood: congruent mood Affect: normal affect DS: Data Vitals/I&O Vitals and I&O: Vital Signs Temperature 36.5 C 05/07/20 07:54 Temperature Source Tympanic 05/07/20 07:54 Pulse 58 L 05/07/20 07:54 Pulse Rhythm Regular 05/07/20 02:03 Respiratory Rate 16 05/07/20 07:54 Respiratory Effort Non-Labored 05/07/20 02:03 Respiratory Depth Normal 05/07/20 02:03 Respiratory Pattern Normal 05/07/20 02:03 Blood Pressure 174/85 H 05/07/20 07:54 Blood Pressure Position Supine 05/03/20 16:11 Pulse Oximetry 96 05/07/20 07:54 Oxygen Delivery Method Room Air 05/07/20 07:54 Oxygen Flow Rate 0 05/07/20 07:54 Fraction of Inspired Oxygen (FIO2) 21 05/06/20 22:34 Pain Level 0 05/07/20 07:54 Comment 05/04/20 19:05 Intake & Output 05/06/20 05/06/20 05/07/20 11:59 23:59 11:59 Intake Total 500 / 750 250 / 750 Output Total 3300 / 4200 900 / 4200 2049 Balance -2800 / -3450 -650 / -3450 -2049 / -2049 Intake: IV 250 / 500 250 / 500 Oral 250 / 250 Output: Urine 3300 / 4200 900 / 4200 2049 Other: Urine Color Pale Yellow Yellow Yellow Urine Appearance Clear Clear Clear Urine Odor None Normal Voiding Methods Toilet Toilet Toilet Data Completed and Pending Completed studies during hospitalization [Text1]: TECHNIQUE: Multiplanar multisequence MRI Examination was performed. CONTRAST MATERIAL: IV Contrast: 18 mL of Dotarem contrast administered. COMPARISON: None. FINDINGS: The examination is limited due to patient motion artifact. BONES/JOINTS: No evidence of fracture. No findings to suggest acute osteomyelitis. Degenerative signal changes are seen at the 2nd through 5th tarsometatarsal joints. No joint effusion identified. LIGAMENTS: Unremarkable as visualized. MUSCULOTENDINOUS STRUCTURES: Visualized portion of the planar fascia is unremarkable. The visualized intrinsic muscles and tendons of the foot are unremarkable. SOFT TISSUES: There is edema seen in the soft tissues on the plantar surface of the foot around the base of the 1st metatarsal. No definite focal fluid collection is seen to suggest an abscess. OTHER FINDINGS: No enhancing mass is appreciated. IMPRESSION: 1. No evidence of acute osteomyelitis. 2. Cellulitis in the soft tissues on the plantar surface of the foot. No abscess is appreciated. 3. Degenerative changes seen in the foot particularly at the 2nd through 5th tarsometatarsal joints. 4. Findings were discussed with Dr. King on the date of the examination. Labs on day of discharge: Labs from last 24 hours 05/07/20 05/06/20 07:30 11:30 Sodium 135 L Potassium 3.6 Chloride 101 Carbon Dioxide 27.6 Anion Gap 6.4 BUN 21 H Creatinine 0.97 Estimated GFR/1.73 m2 56.94 Glucose 173 H Calcium 9.7 Magnesium 1.8 C-Reactive Protein 2.22 H Vancomycin Trough 17.1 PFSH Medical History Diabetes Diabetic neuropathy Falls Hypokalemia Venous stasis of both lower extremities Social History Smoking/Tobacco Use Status: Former Tobacco Use
[2020-05-07] MEDS: Sulfameth/Trimeth DS TAB 2 TAB PO (10:44)
--- NOTE | 2020-05-07 11:10 | PDOC.HHF2F_ITS ---
Home Health Certification Home Health Certification: 1. Encounter Date and Reason I certify that JOHANNY HOLLIDAY was seen by Kerrie Pearce on 05/07/20 and that I had a yrca-an-dold encounter with this patient that meets the physician face to face encounter requirements. 2. Clinical Findings Supporting Skilled Need and Homebound Status I certify that home health services are medically necessary, include either intermittent senior care and/or physical/speech therapy, and that this patient is homebound in that absences from the home require considerable and taxing effort and are infrequent or of short duration, or are attributable to the need to receive medical care. [X] (a) Attached documentation from encounter provides clinical findings supporting skilled need and homebound status (including what assistance patient requires to leave the home). The encounter with the patient was in whole, or in part, for the following medical condition, which is the primary reason for home health care: CELLULITIS Care Home: Patient would benefit from nursing services for home health care of wound and dressing changes. Homebound: Unable to leave home without assistance. 3. Certification and Authentication I certify that I composed the above information based on my clinical judgement relating to this patient's medical condition and, if applicable, clinical findings communicated to me by the NPP or inpatient physician who performed the Home Health Referral. All further orders will be obtained through Keysha Fernando (Community Based Physician - PCP)
--- NOTE | 2020-05-07 12:56 | PT.INDS ---
Date of service: 05/07/20 Time of Service: 12:56 PT Notes Visit Reasons: Cellulitis Physical Therapy Inpatient Discharge Summary Date: 05/07/2020 Dates of Service: 05/07/2020 only Referring Doctor: Eden Roy NP PT Orders: PT CONSULT: falls, peripheral neuropathy, DM foot ulceration Precautions: Fall. Standard. Post-op shoe on R, regular shoe on L. WBAT on R LE. Patient Profile/Admitting Diagnosis: Emma 69-year-old female who presented to the ED on 920 questionable infection and associated cellulitis of the right foot due to accidental stepping on a metal tack. She is diagnosed with puncture wound of the right foot with infection, cellulitis of the right leg and is status post debridement of the right foot with Doe placement on 02/02/2020, and neuropathy. PMHX: Medical History Diabetes Diabetic neuropathy Venous stasis of both lower extremities Social History/Home Situation: Lives alone with her 2 puppies in a private home with 4 steps to enter and rails on both sides. She states that her son is planning on building her around to make getting in and out of the house easier. She is independent with all mobility ADL performance using a 4 wheeled walker for indoors and outdoors. She states that she does not walk too far and that she uses a motorized cart at the grocery store. [facility] takes her to all her doctors appointments. Equipment Owned/DME: Front wheeled walker, 4 wheeled walker Subjective: Looks forward to going home this afternoon when medically cleared by hospitalist. Objective: General Observation: IV access in right UE. Wound dressing on right foot. Erythema to bilateral legs. Mental Status: Alert and oriented x4 Pain: 1/10 in the right foot with weightbearing ROM: Right Upper Extremity: Shoulder Flexion WFL. Shoulder abduction WFL. Elbow flexion WFL. Wrist flexion WFL. Opening and closing of hand WFL. Left Upper Extremity: Shoulder Flexion WFL. Shoulder abduction WFL. Elbow flexion WFL. Wrist flexion WFL. Opening and closing of hand WFL. Right Lower Extremity: Hip flexion WFL. Hip abduction WFL. Knee flexion WFL. Ankle dorsiflexion WFL. Ankle plantarflexion WFL. Left Lower Extremity: Hip flexion WFL. Hip abduction WFL. Knee flexion WFL. Ankle dorsiflexion WFL. Ankle plantarflexion WFL. Strength: Right Upper Extremity: Shoulder flexors 4/5. Shoulder abductors 4/5. Elbow flexors 4/5. Elbow extensors 4/5. Rounding Machine Tender strong. Left Upper Extremity: Shoulder flexors 4/5. Shoulder abductors 4/5. Elbow flexors 4/5. Elbow extensors 4/5. Rounding Machine Tender strong. Right Lower Extremity: Hip flexors 4-/5. Hip abductors 4/5. Knee flexors 4-/5. Knee extensors 4-/5. Ankle dorsiflexors NT. Ankle plantarflexors 4/5. Left Lower Extremity:Hip flexors 4/5. Hip abductors 4/5. Knee flexors 4/5. Knee extensors 4/5. Ankle dorsiflexors 5/5. Ankle plantarflexors 5/5. Sensation: Reports numbness and tingling sensation to bilateral legs and feet. Bed Mobility/Transfers: Sit to stand standby assist Stand to sit standby assist Bed to chair standby assist Chair to bed standby assist Gait: Walker with WBAT on the right LE requiring only contact-guard assist with step through gait pattern and complaint of 1/10 pain in the right foot. Decreased jed. Balance: Static Sitting: Normal Dynamic Sitting: Normal fair Static Standing: Dynamic Standing: Fair 4-stage Balance test: Able to maintain feet together and semi-tandem for 10 seconds but was anxious about performing full tandem and one-legged stance indicating moderate to high risk for falls without the use of an assistive device. Assessment: Emma demonstrates functional mobility decline requiring the use of front wheeled walker and assistance of a caregiver for all mobility ADL performance, generalized weakness, difficulty with walking, impairment with balance, and increased risk for falls due to admitting diagnoses and postoperative status. Emma 69-year-old female who presented to the ED on 920 questionable infection and associated cellulitis of the right foot due to accidental stepping on a metal tack. She is diagnosed with puncture wound of the right foot with infection, cellulitis of the right leg and is status post debridement of the right foot with Doe placement on 02/02/2020, and neuropathy. Patient presents with clinical signs and symptoms consistent with current/admitting diagnoses that have resulted to mobility limitations, gait instability, generalized weakness, and impairment of motor control as demonstrated by the following impairment level findings: 1. Decreased strength to R LE major muscle groups 2. Impaired standing balance 3. Impaired activity tolerance Impairments are contributing to the following functional limitations: 1. Dependent bed mobility skills 2. Increased dependence with transfers 3. Inability to safely ambulate without assistive device and physical assistance 4. Increase completion time for mobility ADL performance 5. Increased fall risk 6. Inability to negotiate steps alone safely Goals: Goals X1 week 1. Supine-Sit independent NOT MET 2. Sit-Supine independent NOT MET 3. Sit-Stand independent NOT MET 4. Stand-Sit independent NOT MET 5. Bed-Chair independent NOT MET 6. Chair-Bed independent NOT MET 7. Independent gait on level surface with use of least restrictive device for at least 300 feet without report of pain nor dyspnea NOT MET 8. Independent stair negotiation while holding onto bilateral rails for at least 5 steps without report of pain nor dyspnea NOT MET 9. Independent with home exercise program NOT MET 10. Good static and dynamic standing balance/tolerance NOT MET DISCHARGE RECOMMENDATIONS: Patient will benefit from home health PT services in order to progress mobility level using least restrictive assistive ambulatory device, assess home safety, identify additional equipment needs, and establish a functional maintenance program that will increase ability of patient to remain at home. TREATMENT CODE/TIME: 36694 x 15 Minutes beginning at 12:56 PM. Thank you for the opportunity to participate in the care of this patient. Cora Cardoso PT, DPT, CLT [facility] [place], [place]
--- NOTE | 2020-05-07 15:53 | CHAPLAIN ---
Emma's nurse asked me to visit her as Emma had just received a phone call from her daughter telling her that her nephew had by suicide this morning. Emma was very teary, and talked about her nephew Geoffrey as a very kind man, in his 40s with five kids. We talked about deaths by suicides being so complicated and leaving many questions unanswered for family members. Emma was being discharged and made plans to go to her sister's home (Geoffrey's mom) and be with her.
== END 2020-05-07 13:15 | disposition home health service (06) | DRG 571 ==
LOC: ER 17:10 → MS 17:20
PROVIDERS: Internal Medicine; Podiatrist; Admitting Provider Family Medicine; Emergency Provider Student in an Organized Health Care Education/Training Program; PCP Internal Medicine; Visit Provider Family Medicine
PROC: 0JBQ0ZZ Excision of Right Foot Subcutaneous Tissue and Fascia, Open Approach (ICD-10-PCS; CPT 11042; principal; 2020-05-04 09:45)
DX: L97.418 Non-pressure chronic ulcer of right heel and midfoot with other specified severity (principal); L03.115 Cellulitis of right lower limb; E11.621 Type 2 diabetes mellitus with foot ulcer; Z79.52 Long term (current) use of systemic steroids; I87.2 Venous insufficiency (chronic) (peripheral); Z87.891 Personal history of nicotine dependence; E11.42 Type 2 diabetes mellitus with diabetic polyneuropathy; Z79.84 Long term (current) use of oral hypoglycemic drugs; K21.9 Gastro-esophageal reflux disease without esophagitis; I10 Essential (primary) hypertension; B95.62 Methicillin resistant Staphylococcus aureus infection as the cause of diseases classified elsewhere; E87.6 Hypokalemia
CPT/HCPCS: 11042; 36415; 80048; 80053; 85652; 87077; 96365; 96368; 97162; 99222; 99232; 99233; 99239; 99285; U0003; 70200; 73720; 80202; 82607; 83036; 83735; 85025; 86140; 87070; 87186; 87205; 99284; J1644; J1956; J2704; J3370; J3475; J3490; J7512

== ENCOUNTER → 2023-10-20 13:32 | Outpatient (BNVA) | payer MEDICARE, MEDICAID, SELFPAY | PROVIDERS: PCP Internal Medicine; Referring Provider Internal Medicine; Visit Provider Podiatrist | DX: L60.3 Nail dystrophy (principal); R60.0 Localized edema; E11.42 Type 2 diabetes mellitus with diabetic polyneuropathy | CPT/HCPCS: 11721; 93922 ==

== ENCOUNTER → 2025-03-29 12:57 | Outpatient (BNVA) | payer MEDICARE, MEDICAID, SELFPAY | PROVIDERS: PCP Internal Medicine; Referring Provider Internal Medicine; Visit Provider Podiatrist | DX: L60.3 Nail dystrophy (principal); R60.0 Localized edema; E11.42 Type 2 diabetes mellitus with diabetic polyneuropathy; B35.1 Tinea unguium; I87.2 Venous insufficiency (chronic) (peripheral); L65.9 Nonscarring hair loss, unspecified; R23.4 Changes in skin texture; L60.8 Other nail disorders; L60.2 Onychogryphosis; R20.2 Paresthesia of skin | CPT/HCPCS: 11721 ==